=== PATIENT | female | born 1990 | race Caucasian/White ===

== ENCOUNTER 2020-10-05 10:10 | Emergency (ER) | payer OTHER ==
[~2020-10-05] VITALS: Ht 175.3 cm; Wt 68.0 kg
[2020-10-05] MEDS ORDERED: IV NORMAL SALINE 1000 ML BAG IV ONE (10:15)
[2020-10-05 10:32] LABS: BASOPHILS % (AUTO) 0.7 % (0.0-2.0); EOSINOPHILS # (AUTO) 0.2 K/uL (0.0-0.7); EOSINOPHILS % (AUTO) 2.6 % (0.0-7.0); HEMATOCRIT 30.8 % (31.2-41.9); HEMOGLOBIN 10.9 g/dL (10.9-14.3); LYMPHOCYTES # (AUTO) 1.6 K/uL (20.0-40.0); MEAN CORPUSCULAR HEMOGLOBIN 30.8 uug (24.7-32.8); MEAN CORPUSCULAR HGB CONC 35 g/dL (32.3-35.6); MEAN CORPUSCULAR VOLUME 87.4 fL (75.5-95.3); MONOCYTES # (AUTO) 0.5 K/uL (2.0-10.0); MONOCYTES % (AUTO) 7.7 % (0.0-11.0); NEUTROPHILS # (AUTO) 4.7 K/uL (1.8-8.9); PLATELET COUNT (AUTO) 289 K/uL (179-408); RED BLOOD CELL COUNT(AUTO) 3.53 MIL/uL (3.63-4.92); WHITE BLOOD COUNT (AUTO) 7.1 K/uL (3.8-11.8)
[2020-10-05 10:37] LABS: POTASSIUM 3.6 mmol/L (3.5-5.1)
[2020-10-05 10:50] LABS: BILIRUBIN,DIRECT 0.2 mg/dL (0.0-0.2); BILIRUBIN,TOTAL 0.6 mg/dL (0.2-1.0)
--- NOTE | 2020-10-05 11:14 | NUR ---
Patient wants to be admitted to a hospital, Dr Francisco notified. Patient is tearful about going home@this time.
--- NOTE | 2020-10-05 11:40 | NUR ---
Patient is now calling someone to pick her up. Patient is for discharge by Dr Francisco. Written and verbal after care instructions & copies of all the tests' results were given to patient. Patient verbalizes understanding & compliance of instructions. Stressed follow up with her [place] primary doctor & [place] specialist or return to ER for worsening s/s.
--- NOTE | 2020-10-05 11:58 | NUR ---
[facility] transfer started by Dr Francisco per patient's request.
[2020-10-05 13:00] LABS: *OCCULT BLOOD STOOL POSITIVE (NEGATIVE)
--- NOTE | 2020-10-05 13:53 | NUR ---
Patient is resting comfortably on gurney, NAD, pending ambulance pick-up@this time
--- NOTE | 2020-10-05 14:50 | NUR ---
Patient tranfers to outside facility: [facility]-ER Physician: Dr. Dalton Location: [facility] department RN: Shorty [email or web address] ambulance staff: [employer] finisher Tanisha Whitfield
== END 2020-10-05 14:53 | disposition short-term general hospital (02) ==
LOC: ER 10:10
DX: K92.2 Gastrointestinal hemorrhage, unspecified (principal); Z20.822 Contact with and (suspected) exposure to COVID-19; R42 Dizziness and giddiness
CPT/HCPCS: 36415; 71045; 74176; 80048; 80076; 82270; 83690; 84702; 85025; 85730; 86850; 86900; 86901; 87426; 96360; 99285; U0003; A4663; J7030